=== PATIENT | female | born 1945 | race Caucasian/White ===

== ENCOUNTER 2018-08-05 10:46 | Inpatient (IN) | payer MEDICARE, OTHER ==
[2018-08-05 11:05] VITALS: BMI 20.7
--- NOTE | 2018-08-05 11:05 | CT ---
Date of service: 08/05/2018 PROCEDURE: CT HEAD WITHOUT CONTRAST. HISTORY: code stroke COMPARISON: None available. TECHNIQUE: Axial computed tomography images were obtained through the head/brain without intravenous contrast. Radiation dose: Total exam DLP = 852.48 mGy-cm. This CT exam was performed using one or more of the following dose reduction techniques: Automated exposure control, adjustment of the mA and/or kV according to patient size, and/or use of iterative reconstruction technique. FINDINGS: HEMORRHAGE: No intracranial hemorrhage. BRAIN: Good corticomedullary differentiation is seen. Limited proportional, diffuse expansion of the ventriculosulcal and cisternal spaces is appreciated with white matter lucency compatible with diffuse cerebral atrophy and chronic microangiopathy. No suspicious extra-axial fluid collection is identified and the midline brain anatomy appears grossly nonfocal as imaged. There is no mass effect throughout. VENTRICLES: Unremarkable. No hydrocephalus. CALVARIUM: Unremarkable. PARANASAL SINUSES: Limited multifocal mucosal inflammatory changes are identified affecting bilateral ethmoid sinuses MASTOID AIR CELLS: Unremarkable as visualized. No inflammatory changes. OTHER FINDINGS: None. IMPRESSION: Age related neuro degenerative changes are identified without acute intracranial findings as discussed above. Follow up CT or MRI are available if clinically warranted.
--- NOTE | 2018-08-05 11:08 | ED PDOC ---
HPI:STROKE - Time Time: 10:54 - Historian Historian: Patient, Family - Chief Complaint Chief Complaint: Weakness, Slurred speech, Arm weakness - Onset Date: 08/05/18 Time: 07:30 Onset: Hours - Timing Timing: Currently Symptomatic - Notes: Notes:: 73yo female, with past medical history of hypothyroidsm, type 2 diabetes, high cholesterol and recent diagnosis of diverticulitis, comes to ER with complaints of dizziness, right sided weakness and slurred speech since waking at 7:30a. Patient states she slept at 10pm last night and was feeling fine; she states the symptoms did not resolve after an hour from onset so she called her daughter who took her to the PMD for evaluation. Patient was seen by Dr. Jacobs and was sent directly to the ER. On arrival, patient with slurred but understandable speech; she denies any headache or pain. Patient does report 1 month ago, she was diagnosed with diverticulitis and since then has completed 2 course of antibiotics of Cipro and Metronidazole and has had 10lbs weight loss. She denies any recent episodes of vomiting or diarrhea. She was in [place] 1 month ago and denies any recent sick contacts. PMD: Dr. Vinson Meds: Synthroid, metformin, lipitor, meloxicam, calcium supplements, cippro, metronidazole NKDA NIHSS Stroke Scale - Date/Time Evaluation Performed Date Performed: 08/05/18 Time Performed: 10:54 When Was NIHSS Performed: Code Stroke - How Severe is the Stroke Level of Consciousness: 0=Alert LOC to Questions: 0=Both comments correct LOC to commands: 0=Obeys both correctly Best Gaze: 0=Normal Visual: 0=No visual loss Facial: 0=Normal Motor Arm - Left: 0=No drift Motor Arm - Right: 0=No drift Motor Leg - Left: 0=No drift Motor Leg - Right: 1=Drift before 5 sec Limb Ataxia: 0=Absent Sensory: 0=Normal Best Language: 0=No aphasia Dysarthia: 1=Mild to moderate slurring Extinction & Inattention (Neglect): 0=Normal, no object Score: 2 rTPA Inclusion/Exclusion - Refusal of Treatment Patient Refused Treatment: No - Inclusion Criteria for Altepase Patient is 18 years or Older: Yes The Clinical Diagnosis of Ischemic Stroke That is Causing a Potentially Disabling Neurological Deficit: Yes Time of Onset is Well Established to be Less Than 270 Minute Before Treatment Would Begin: No Risk/Benefit Discussed With Patient/Family Member Present: Yes Past Medical History Reviewed: Historical Data, Nursing Documentation, Vital Signs - Medical History PMH: HTN, Hypothyroidism - Surgical History Surgical History: No Surg Hx - Family History Family History: States: No Known Family Hx - Living Arrangements Living Arrangements: Alone - Social History Current smoker - smoking cessation education provided: No Alcohol: None Drugs: Denies - Home Medications Home Medications: Ambulatory Orders Medication Instructions Recorded Atorvastatin [Lipitor] 20 mg PO DAILY 08/05/18 Calcium Carbonate/Vitamin D 1 tab PO QOTHERDAY 08/05/18 [Oyster Shell Calcium/Vitamin D 250 MG-125 Iu] Ciprofloxacin [Cipro] 500 mg PO Q12 08/05/18 Levothyroxine Sodium [Synthroid] 88 mcg PO DAILY 08/05/18 Metronidazole 500 mg PO Q8H 08/05/18 Primidone [Mysoline] 50 mg PO HS 08/05/18 Raloxifene [Evista] 60 mg PO DAILY 08/05/18 metFORMIN [glucOPHAGE] 500 mg PO BID 08/05/18 - Allergies Allergies/Adverse Reactions: Allergies Allergy/AdvReac Type Severity Reaction Status Date / Time EGG Allergy VOMITING Verified 08/05/18 12:18 Review of Systems ROS Statement: Except As Marked, All Systems Reviewed And Found Negative Constitutional: Negative for: Fever, Chills Cardiovascular: Negative for: Chest Pain Respiratory: Negative for: Shortness of Breath Neurological: Positive for: Change in Speech, Dizziness. Negative for: Headache Physical Exam - Reviewed Nursing Documentation Reviewed: Yes Vital Signs Reviewed: Yes - Physical Exam Appears: Positive for: Non-toxic, Uncomfortable Head Exam: Positive for: ATRAUMATIC, NORMAL INSPECTION, NORMOCEPHALIC Skin: Positive for: Normal Color, Warm, Dry Eye Exam: Positive for: EOMI, Normal appearance, PERRL ENT: Positive for: Normal ENT Inspection Neck: Positive for: Normal, Painless ROM, Supple Cardiovascular/Chest: Positive for: Regular Rate, Rhythm Respiratory: Positive for: CNT, Normal Breath Sounds Pulses-Radial (L): 2+ Pulses-Radial (R): 2+ Gastrointestinal/Abdominal: Positive for: Normal Exam, Soft Back: Positive for: Normal Inspection. Negative for: Vertebral Tenderness, Muscle Spasm Extremity: Positive for: Normal ROM. Negative for: Pedal Edema, Deformity, Other (cyanosis) Neurologic/Psych: Positive for: Alert, multi line claims adjuster II-XII (intact), Oriented, Other ( right leg drift; slurred speech). Negative for: Motor/Sensory Deficits Comments: Patient noted to have makeup on face, which appears coordinated. - Laboratory Results Result Diagrams: 08/06/18 04:20 08/06/18 04:20 - ECG Pulse Ox Interpretation: Normal Medical Decision Making Medical Decision Making: Impression: Stroke/CVA Plan: * Labs * Chest x-ray * CT Head w/o contrast * IV Fluids Time: 1054 Code stroke called Stroke protocol followed. customer account coordinator present in ER. Time: [address] Govea, neurologist campus monitor, who states patient is not a candidate for TPA as she woke up with the symptoms. Per Dr. Govea, CTA Head and Neck ordered, and patient to be admitted to Telemetry. CT Head FINDINGS: HEMORRHAGE: No intracranial hemorrhage. BRAIN: Good corticomedullary differentiation is seen. Limited proportional, diffuse expansion of the ventriculosulcal and cisternal spaces is appreciated with white matter lucency compatible with diffuse cerebral atrophy and chronic microangiopathy. No suspicious extra-axial fluid collection is identified and the midline brain anatomy appears grossly nonfocal as imaged. There is no mass effect throughout. VENTRICLES: Unremarkable. No hydrocephalus. CALVARIUM: Unremarkable. PARANASAL SINUSES: Limited multifocal mucosal inflammatory changes are identified affecting bilateral ethmoid sinuses MASTOID AIR CELLS: Unremarkable as visualized. No inflammatory changes. OTHER FINDINGS: None. IMPRESSION: Age related neuro degenerative changes are identified without acute intracranial findings as discussed above. Follow up CT or MRI are available if clinically warranted. Time: [address] Vigil, hospitalist campus monitor, and patient to be admitted under his service. Time: 1221 CTA Brain FINDINGS: INTERNAL CEREBRAL ARTERIES: Unremarkable. The skull base, petrous, cavernous and supraclinoid segments are bilaterally widely patent. ANTERIOR CEREBRAL ARTERIES: Unremarkable. A1 and A2 segments are widely patent. Smaller distal branches unremarkable, as visualized. MIDDLE CEREBRAL ARTERIES: Unremarkable. M1 and M2 segments are widely patent. Perisylvian branches grossly symmetric. POSTERIOR CIRCULATION: Basilar Artery: Unremarkable. Distal Vertebral Arteries: Left dominant vertebrobasilar circulation widely patent. Posterior Cerebral Arteries: Unremarkable. Posterior Inferior Cerebellar Arteries: Unremarkable. CTA Neck FINDINGS: Common Carotid arteries: The left common carotid artery originates off the brachycephalic artery. The bilateral common carotid appear widely patent from their origins to their bifurcations with no significant stenosis appreciated. No evidence to suggest common carotid artery dissection. Internal Carotid arteries: No significant stenosis is appreciated throughout the cervical internal carotid artery segments bilaterally and there is no evidence of dissection either. External Carotid arteries: Appear unremarkable bilaterally. Vertebral arteries: The bilateral vertebral arteries appear normal in caliber from their origins to their junction with the basilar artery. No significant stenosis or definite pattern of dissection. ANEURYSM/ VASCULAR MALFORMATIONS: None. OTHER FINDINGS: None. IMPRESSION: Unremarkable CT Angiography of the Brain and Neck. Scribe Attestation: Documented by Mercedes Frank, acting as a scribe for Marj Rob MD. Provider Scribe Attestation: All medical record entries made by the Scribe were at my direction and personally dictated by me. I have reviewed the chart and agree that the record accurately reflects my personal performance of the history, physical exam, medical decision making, and the department course for this patient. I have also personally directed, reviewed, and agree with the discharge instructions and disposition. Disposition - Clinical Impression Clinical Impression: Weakness of one side of body, Weakness due to cerebrovascular accident - Patient ED Disposition Is Patient to be Admitted: Yes - Disposition Disposition Time: 11:55 Condition: FAIR
[2018-08-05] MEDS ORDERED: Iodixanol 320 MG/ML 100 ML BOTTLE IV ONE (11:14)
[2018-08-05] MEDS ORDERED: Sodium Chloride 0.9% 50 ML IV ONE (11:14)
[2018-08-05] MEDS: Sodium Chloride 0.9% 1,000 ML IV SCH ×2 (11:32→21:41)
[2018-08-05 11:33] LABS: BASO # 0.1 K/uL (0.0-0.2); BASO % 2.6 % (0.0-2.0); EOS # 0.1 K/uL (0.0-0.7); EOS % 1.6 % (0.0-4.0); LYMPH % 22.5 % (20.0-40.0); MEAN CELL VOLUME 84.6 fl (81.0-99.0); MEAN CORPUSCULAR HEMOGLOBIN 28.8 pg (27.0-31.0); MEAN PLATELET VOLUME 8.4 fl (7.2-11.7); MONO # 0.4 K/uL (0.0-0.8); MONO % 9.7 % (0.0-10.0); NEUT # 2.9 K/uL (1.8-7.0); NEUT % 63.6 % (50.0-75.0); NRBC % 0.1 % (0.0-0.0); RBC 5.2 Mil/uL (3.80-5.20); RED CELL DISTRIBUTION WIDTH 15.6 % (11.5-14.5); WHITE BLOOD COUNT 4.5 K/uL (4.8-10.8)
[2018-08-05 11:35] LABS: INR 1.2; PROTHROMBIN TIME 13.3 Seconds (9.8-13.1)
[2018-08-05 11:42] LABS: ALB/GLOB RATIO 1.2 (1.0-2.1); ALBUMIN 3.8 g/dL (3.5-5.0); ALT/SGPT 20 U/L (9-52); AST/SGOT 41 U/L (14-36); BLOOD UREA NITROGEN 9 mg/dl (7-17); CALCIUM 9.8 mg/dL (8.4-10.2); GFR NON-AFRICAN AMERICAN > 60; HDL CHOLESTEROL 57 MG/DL (30-70)
[2018-08-05 11:56] LABS: LDL CHOLESTEROL < 30 mg/dL (0-129)
--- NOTE | 2018-08-05 12:23 | CT ---
Date of service: 08/05/2018 PROCEDURE: CT Angiography of the Brain. HISTORY: right sided weakness and slurred speech COMPARISON: None available. TECHNIQUE: CT angiography of the intracranial and neck arteries was performed. Coronal and sagittal maximum intensity projection reformatted images were generated. Contrast Dose: Visipaque 320, 99 cc Radiation dose:Total exam DLP = 425.99 mGy-cm. This CT exam was performed using one or more of the following dose reduction techniques: Automated exposure control, adjustment of the mA and/or kV according to patient size, and/or use of iterative reconstruction technique. FINDINGS: INTERNAL CEREBRAL ARTERIES: Unremarkable. The skull base, petrous, cavernous and supraclinoid segments are bilaterally widely patent. ANTERIOR CEREBRAL ARTERIES: Unremarkable. A1 and A2 segments are widely patent. Smaller distal branches unremarkable, as visualized. MIDDLE CEREBRAL ARTERIES: Unremarkable. M1 and M2 segments are widely patent. Perisylvian branches grossly symmetric. POSTERIOR CIRCULATION: Basilar Artery: Unremarkable. Distal Vertebral Arteries: Left dominant vertebrobasilar circulation widely patent. Posterior Cerebral Arteries: Unremarkable. Posterior Inferior Cerebellar Arteries: Unremarkable. NECK CTA: Common Carotid arteries: The left common carotid artery originates off the brachycephalic artery. The bilateral common carotid appear widely patent from their origins to their bifurcations with no significant stenosis appreciated. No evidence to suggest common carotid artery dissection. Internal Carotid arteries: No significant stenosis is appreciated throughout the cervical internal carotid artery segments bilaterally and there is no evidence of dissection either. External Carotid arteries: Appear unremarkable bilaterally. Vertebral arteries: The bilateral vertebral arteries appear normal in caliber from their origins to their junction with the basilar artery. No significant stenosis or definite pattern of dissection. ANEURYSM/ VASCULAR MALFORMATIONS: None. OTHER FINDINGS: None. IMPRESSION: Unremarkable CT Angiography of the Brain and Neck.
--- NOTE | 2018-08-05 13:25 | RAD ---
HISTORY: Code Stroke COMPARISON: None available. TECHNIQUE: Chest, one view. FINDINGS: Examination limited by habitus and patient obliquity. LUNGS: Mild pulmonary venous congestion. Scattered nodular densities, likely calcified granulomas bilaterally. Please note that chest x-ray has limited sensitivity for the detection of pulmonary masses. PLEURA: No significant pleural effusion identified. No definite pneumothorax . CARDIOVASCULAR: Heart size appears top normal. Ectatic aorta OSSEOUS STRUCTURES: Scoliosis. Osseous demineralization. Degenerative changes. VISUALIZED UPPER ABDOMEN: Unremarkable. OTHER FINDINGS: None. IMPRESSION: Mild pulmonary venous congestion. Scattered nodular densities, likely calcified granulomas. Additional findings as above.
[2018-08-05] MEDS ORDERED: Potassium Chloride 20 mEq ER Tab PO ONE (13:36)
--- NOTE | 2018-08-05 13:37 | CP.PCM.HP ---
History of Present Illness - History of Present Illness History of Present Illness: HPI: 73 y/o Female with PMHx of DM type 2, HLD, Hypothyroidsm, Esssential tremors and recent diagnosis of diverticultitis, presents to the ED accompanied by daughter, who is also the history barrel stave inspector, with c/o unsteady gait, weakness of bilateral lower extremities and slurred speech since waking up today at 7:30 AM , according to family she is also noted forgetful. Patient states she was feeling fine yesterday before going to bed around 10 PM. 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 Patient denies any associated symptoms today of GUTIÉRREZ, chest pain,palpitations, blurry vision, tinnitus, N/V/D or abdominal pain at this time. Family reports that patient was diagnosed with diverticultis on July 12 and is on her second course of antbx with cipro and flagyl and following up with GI Dr Jacobs for this reason, daughter reports that the patient has decreased appetite since she started with diverticulitis and has lost approximately 20 Lbs in the last 1 MO. ROS: All systems reviewed ad are negative, excep as per HPI. PMH: DM type 2, HLD, Essential tremors, Hypothyroidsm, Diverticulitis. FMH: unremarkable SURG: Thyroid Sx. SOHx: Denies tobacco/ ETOH/Rec drug use. Allergies: NKDA/ Food Allergies: Egg PMD: Dr. Vinson. MEDS: Synthroid, metformin, primidone for hx hand tremors(patient and daughter deny hx of seizures), lipitor, meloxicam prn, calcium supplements, cippro, metronidazole Nex of kin: Daughters: Elaine Curry [phone], Amee Browning(daughter) [phone] Code Status: Full code. ED Course: VS HR 73, BP 153/90, RR 18, Osat 95% LABS: CBC Hb 15/ Hto 44 Chem Lipid P is WNL. Imaging: CXR shows impression mild pulm congestion, scattered nodular densities , likely calcified granulomas. CT head: Age related changes, no acute findings Head/ Neck CTA: No acute findings. EKG: NSR, Nonespecific ST segement abnormalities Swallow eval done: Recomm regular diet and thin liq, no skilled therapeutic intervention at this time Present on Admission - Present on Admission Any Indicators Present on Admission: No History of DVT/PE: No History of Uncontrolled Diabetes: No Urinary Catheter: No Decubitus Ulcer Present: No History Surgical Site Infection Following: None Past Patient History - Past Social History Alcohol: None Drugs: Denies - CARDIAC Hx Cardiac Disorders: Yes - ENDOCRINE/METABOLIC Hx Hypothyroidism: Yes - PSYCHIATRIC Hx Substance Use: No - SURGICAL HISTORY Hx Thyroidectomy: Yes Meds Allergies/Adverse Reactions: Allergies Allergy/AdvReac Type Severity Reaction Status Date / Time EGG Allergy VOMITING Verified 08/05/18 12:18 Physical Exam - Constitutional Appears: Non-toxic, No Acute Distress - Head Exam Head Exam: ATRAUMATIC, NORMOCEPHALIC - Eye Exam Eye Exam: EOMI, PERRL. absent: Nystagmus - ENT Exam ENT Exam: Mucous Membranes Moist - Neck Exam Neck exam: Positive for: Full Rom - Respiratory Exam Respiratory Exam: Clear to Auscultation Bilateral. absent: Rales, Rhonchi, Wheezes - Cardiovascular Exam Cardiovascular Exam: REGULAR RHYTHM, +S1, +S2. absent: JVD - GI/Abdominal Exam GI & Abdominal Exam: Normal Bowel Sounds, Soft. absent: Mass, Tenderness - Extremities Exam Extremities exam: Negative for: calf tenderness, pedal edema - Neurological Exam Neurological exam: Alert, Oriented x3 Additional comments: No sensorial deficit noted MOTOR deficit noted on RLE 3/5 No Arm drift According to Family mild slurred speech NIH stroke scale score 2 - Expanded Neurological Exam Expanded Neurological exam: Memory Loss-Remote Event (patient is noted with some forgetfulness of past events) Patient oriented to: person, place, time Cranial nerves: Tongue Deviation: Normal Upper motor neuron: Pronator Drift: Normal Neuro motor strength exam: Left Upper Extremity: 5, Right Upper Extremity: 5, Left Lower Extremity: 5, Right Lower Extremity: 3 - Psychiatric Exam Psychiatric exam: Normal Affect, Normal Mood - Skin Skin Exam: Dry, Normal Color, Warm Results - Vital Signs Recent Vital Signs: Last Vital Signs Temp Pulse 82 08/05/18 13:02 Resp 18 08/05/18 13:02 BP 159/86 H 08/05/18 13:02 Pulse Ox 95 08/05/18 12:20 - Labs Result Diagrams: 08/05/18 11:26 08/05/18 11:26 Labs: Laboratory Results - last 24 hr 08/05/18 08/05/18 08/05/18 11:26 11:26 11:26 WBC 4.5 L RBC 5.20 Hgb 15.0 Hct 44.0 MCV 84.6 MCH 28.8 MCHC 34.0 RDW 15.6 H Plt Count 317 MPV 8.4 Neut % (Auto) 63.6 Lymph % (Auto) 22.5 [place] % (Auto) 9.7 Eos % (Auto) 1.6 Baso % (Auto) 2.6 H Neut # (Auto) 2.9 Lymph # (Auto) 1.0 [place] # (Auto) 0.4 Eos # (Auto) 0.1 Baso # (Auto) 0.1 PT 13.3 H INR 1.2 APTT 32.0 Sodium 142 Potassium 3.4 L Chloride 106 Carbon Dioxide 29 Anion Gap 10 BUN 9 Creatinine 0.7 Est GFR ( Amer) > 60 Est GFR (Non-Af Amer) > 60 Random Glucose 147 H Calcium 9.8 Total Bilirubin 0.3 AST 41 H ALT 20 Alkaline Phosphatase 58 Troponin I < 0.0120 Total Protein 7.0 Albumin 3.8 Globulin 3.2 Albumin/Globulin Ratio 1.2 Triglycerides 64 Cholesterol 111 LDL Cholesterol Direct < 30 HDL Cholesterol 57 BBK History Checked 08/05/18 12:40 WBC RBC Hgb Hct MCV MCH MCHC RDW Plt Count MPV Neut % (Auto) Lymph % (Auto) [place] % (Auto) Eos % (Auto) Baso % (Auto) Neut # (Auto) Lymph # (Auto) [place] # (Auto) Eos # (Auto) Baso # (Auto) PT INR APTT Sodium Potassium Chloride Carbon Dioxide Anion Gap BUN Creatinine Est GFR ( Amer) Est GFR (Non-Af Amer) Random Glucose Calcium Total Bilirubin AST ALT Alkaline Phosphatase Troponin I Total Protein Albumin Globulin Albumin/Globulin Ratio Triglycerides Cholesterol LDL Cholesterol Direct HDL Cholesterol BBK History Checked No verified bt Assessment & Plan - Assessment and Plan (Free Text) Assessment: 73 y/o Female with PMHx of DM type 2, HLD, Hypothyroidsm, Essential tremors and recent diagnosis of diverticultitis presented with Slurred speech, LE weakness and unsteady gait since waking up, admitted to rule out CVA vs TIA. Plan: Acute CVA vs TIA -Patient had some improvement of slurred speech at time of evaluation -Admit to tele-monitoring -Neuro check Q 4h -Swallow Eval: performed, WNL -CT of head: done: Age related changes, no acute findings. -CTA HEad/Neck: Unremarkbale CTA -Aspirin 81 PO QD -Plavix 75 PO QD -Atorvastatin 80 mg PO QD -Neurology consult by Dr Govea, recommendations appreciated -BMP in AM -MRI of brain w/o contrast: pending results -PT/OT evaluation and Tx DM type 2 -Heart healthy/diabetic diet -Insulin mild SS coverage -Metformin: on Hold for now -F/u HbA1C, pending results Hypothyroidsm -Levothyroxine 88 mcg PO QD Hs of Tremors -Primidone 25 PO QHS Diverticultis -Patient currently receiving outpatient tx -we will continue to complete flagyl and cipro. -Outpatient GI Dr Jacobs DVT Prophylaxis -Heparin 5000 U SC Q8h Code Status -Full code
[2018-08-05] MEDS ORDERED: Dextrose 50% SYRINGE Inj (50 ml) IV PRN (13:44)
[2018-08-05] MEDS ORDERED: Glucagon Recombinant 1 mg Inj IM PRN (13:44)
[2018-08-05] MEDS: Insulin Lispro (humaLOG) 100 Units/ml Inj SC SCH ×2 (17:15→21:40)
[2018-08-06 05:11] LABS: HEMOGLOBIN 12.6 g/dL (12.0-16.0); MEAN CELL VOLUME 85.2 fl (81.0-99.0); MEAN CORPUSCULAR HEMOGLOBIN 28.7 pg (27.0-31.0); MEAN CORPUSCULAR HGB CONC 33.6 g/dL (33.0-37.0); RBC 4.41 Mil/uL (3.80-5.20); RED CELL DISTRIBUTION WIDTH 15.5 % (11.5-14.5); WHITE BLOOD COUNT 4.1 K/uL (4.8-10.8)
[2018-08-06 05:31] LABS: BLOOD UREA NITROGEN 10 mg/dl (7-17); CALCIUM 8.6 mg/dL (8.4-10.2); GFR NON-AFRICAN AMERICAN > 60
[2018-08-06] MEDS: Levothyroxine 88 MCG TAB PO SCH (06:30)
[2018-08-06] MEDS: Insulin Lispro (humaLOG) 100 Units/ml Inj SC SCH ×4 (06:31→21:25)
--- NOTE | 2018-08-06 07:50 | CP.PCM.PN ---
Objective - Vital Signs/Intake and Output Vital Signs (last 24 hours): Temp Pulse Resp BP Pulse Ox 98.1 F 71 18 124/62 97 08/06/18 04:55 08/06/18 04:55 08/06/18 04:55 08/06/18 04:55 08/06/18 04:55 - Medications Medications: Current Medications Aspirin (Aspirin Chewable) 81 mg PO DAILY [facility] Last Admin: 08/05/18 15:56 Dose: 81 mg Atorvastatin Calcium (Lipitor) 80 mg PO HS [facility] Last Admin: 08/05/18 21:40 Dose: 80 mg Calcium/Vitamin D (Oscal-D 250 Mg-125 Units Tab) 1 tab PO QOTHERDAY [facility] Ciprofloxacin (Cipro) 500 mg PO Q12 [facility] PRN Reason: Protocol Stop: 08/08/18 21:00 Last Admin: 08/05/18 21:39 Dose: 500 mg Clopidogrel Bisulfate (Plavix) 75 mg PO DAILY [facility] Last Admin: 08/05/18 15:55 Dose: 75 mg Dextrose (Dextrose 50% Inj) 0 ml IV STAT PRN; Protocol PRN Reason: Hypoglycemia Protocol Dextrose (Glutose 15) 0 gm PO ONCE PRN; Protocol PRN Reason: Hypoglycemia Protocol Glucagon (Glucagen Diagnostic Kit) 0 mg IM STAT PRN; Protocol PRN Reason: Hypoglycemia Protocol Heparin Sodium (Porcine) (Heparin) 5,000 units SC Q8 [facility] PRN Reason: Protocol Last Admin: 08/06/18 00:40 Dose: 5,000 units Home Med (Raloxifene [Evista]) 60 mg PO DAILY [facility] Sodium Chloride (Sodium Chloride 0.9%) 1,000 mls @ 100 mls/hr IV .Q10H [facility] Last Admin: 08/05/18 21:41 Dose: 100 mls/hr Insulin Human Lispro (Humalog) 0 units SC ACHS [facility] PRN Reason: Protocol Last Admin: 08/06/18 06:31 Dose: Not Given Levothyroxine Sodium (Synthroid) 88 mcg PO DAILY@0630 [facility] Last Admin: 08/06/18 06:30 Dose: 88 mcg Metronidazole (Flagyl) 500 mg PO Q8H [facility] PRN Reason: Protocol Stop: 08/08/18 21:45 Last Admin: 08/06/18 06:30 Dose: 500 mg Primidone (Mysoline) 25 mg PO HS [facility] Last Admin: 08/05/18 21:40 Dose: 25 mg - Labs Labs: 08/06/18 04:20 08/06/18 04:20 PT 13.3 Seconds (9.8-13.1) H 08/05/18 11:26 INR 1.2 08/05/18 11:26 APTT 32.0 Seconds (25.6-37.1) 08/05/18 11:26
[2018-08-06] MEDS: Patient's Own Med (Raloxifene [Evista] 60 MG) PO SCH (09:08)
[2018-08-06] MEDS: Calcium-Vit D 250 mg-125 Units Tab UD PO SCH (09:10)
--- NOTE | 2018-08-06 11:10 | MRI ---
Date of service: 08/05/2018 PROCEDURE: MRI BRAIN WITHOUT CONTRAST HISTORY: r/o CVA COMPARISON: Noncontrast head CT 08/05/2018. TECHNIQUE: Multiplanar, multisequence MR images of the brain were obtained without intravenous contrast enhancement. FINDINGS: HEMORRHAGE: None DWI: No evidence of an acute or early subacute infarction. BRAIN PARENCHYMA: Good corticomedullary differentiation is seen. Proportional, marginal but diffuse expansion of the ventriculosulcal and cisternal spaces is appreciated with minimal white matter lucency compatible with diffuse cerebral atrophy and chronic microangiopathy. No suspicious extra-axial fluid collection is identified and the midline brain anatomy appears grossly nonfocal as imaged. There is no mass effect throughout. VENTRICLES: Unremarkable. No hydrocephalus. CRANIUM: Unremarkable. ORBITS: Grossly unremarkable. PARANASAL SINUSES/MASTOIDS: Clear VASCULAR SYSTEM: Skull base flow voids intact. OTHER FINDINGS: None. IMPRESSION: 1. No acute or subacute brain infarction appreciated. No lobar brain infarction. 2. Limited age-related neuro degenerative findings are identified throughout the cerebrum. 3. Examination otherwise unremarkable.
[2018-08-06] MEDS: Sodium Chloride 0.9% 1,000 ML IV SCH ×2 (11:47→14:35)
--- NOTE | 2018-08-06 12:39 | CP.PCM.PN ---
Subjective - Date & Time of Evaluation Date of Evaluation: 08/06/18 Time of Evaluation: 08:50 - Subjective Subjective: Patient seen at bedside this AM, NAD, no dysarthria today, states feeling better compared to yesterday, denies GUTIÉRREZ, chest pain, SOB, palpitations, abdominal pain, N/V. Objective - Vital Signs/Intake and Output Vital Signs (last 24 hours): Temp Pulse Resp BP Pulse Ox 98.3 F 63 18 136/76 97 08/06/18 12:00 08/06/18 12:00 08/06/18 12:00 08/06/18 12:00 08/06/18 12:00 - Medications Medications: Current Medications Aspirin (Aspirin Chewable) 81 mg PO DAILY COUNTS [facility]CLUDE 234 BEDS AT THE [facility] Last Admin: 08/06/18 09:06 Dose: 81 mg Atorvastatin Calcium (Lipitor) 80 mg PO HS COUNTS INCLUDE 234 BEDS AT THE [facility] Last Admin: 08/05/18 21:40 Dose: 80 mg Calcium/Vitamin D (Oscal-D 250 Mg-125 Units Tab) 1 tab PO QOTHERDAY COUNTS INCLUDE 234 BEDS AT THE [facility] Last Admin: 08/06/18 09:10 Dose: 1 tab Ciprofloxacin (Cipro) 500 mg PO Q12 COUNTS [facility]CLUDE 234 BEDS AT THE [facility] PRN Reason: Protocol Stop: 08/08/18 21:00 Last Admin: 08/06/18 09:06 Dose: 500 mg Clopidogrel Bisulfate (Plavix) 75 mg PO DAILY COUNTS INCLUDE 234 BEDS AT THE [facility] Last Admin: 08/06/18 09:08 Dose: 75 mg Dextrose (Dextrose 50% Inj) 0 ml IV STAT PRN; Protocol PRN Reason: Hypoglycemia Protocol Dextrose (Glutose 15) 0 gm PO ONCE PRN; Protocol PRN Reason: Hypoglycemia Protocol Glucagon (Glucagen Diagnostic Kit) 0 mg IM STAT PRN; Protocol PRN Reason: Hypoglycemia Protocol Heparin Sodium (Porcine) (Heparin) 5,000 units SC Q8 COUNTS INCLUDE 234 BEDS AT THE [facility] PRN Reason: Protocol Last Admin: 08/06/18 09:06 Dose: 5,000 units Home Med (Raloxifene [Evista]) 60 mg PO DAILY COUNTS INCLUDE 234 BEDS AT THE [facility] Last Admin: 08/06/18 09:08 Dose: 60 mg Insulin Human Lispro (Humalog) 0 units SC ACHS COUNTS INCLUDE 234 BEDS AT THE [facility] PRN Reason: Protocol Last Admin: 08/06/18 11:46 Dose: Not Given Levothyroxine Sodium (Synthroid) 88 mcg PO DAILY@0630 COUNTS INCLUDE 234 BEDS AT THE [facility] Last Admin: 08/06/18 06:30 Dose: 88 mcg Metronidazole (Flagyl) 500 mg PO Q8H [facility] PRN Reason: Protocol Stop: 08/08/18 21:45 Last Admin: 08/06/18 06:30 Dose: 500 mg Primidone (Mysoline) 25 mg PO HS COUNTS INCLUDE 234 BEDS AT THE [facility] Last Admin: 08/05/18 21:40 Dose: 25 mg - Labs Labs: 08/06/18 04:20 08/06/18 04:20 PT 13.3 Seconds (9.8-13.1) H 08/05/18 11:26 INR 1.2 08/05/18 11:26 APTT 32.0 Seconds (25.6-37.1) 08/05/18 11:26 - Constitutional Appears: No Acute Distress - Head Exam Head Exam: ATRAUMATIC, NORMOCEPHALIC - Eye Exam Eye Exam: EOMI, PERRL - ENT Exam ENT Exam: Mucous Membranes Moist - Neck Exam Neck Exam: Full ROM - Respiratory Exam Respiratory Exam: Clear to Ausculation Bilateral. absent: Wheezes - Cardiovascular Exam Cardiovascular Exam: REGULAR RHYTHM, +S1, +S2 - GI/Abdominal Exam GI & Abdominal Exam: Soft, Normal Bowel Sounds. absent: Tenderness - Extremities Exam Extremities Exam: absent: Pedal Edema - Neurological Exam Neurological Exam: Alert, CN II-XII Intact, Oriented x3 Neuro motor strength exam: Left Upper Extremity: 5, Right Upper Extremity: 5, Left Lower Extremity: 5, Right Lower Extremity: 4 Additional comments: No sensorial deficit noted today. Noted a mild motor deficit on RLE 4/5 compared to LLE 5/5 - Psychiatric Exam Psychiatric exam: Normal Affect, Normal Mood - Skin Skin Exam: Normal Color, Warm Assessment and Plan - Assessment and Plan (Free Text) Assessment: 73 y/o Female with PMHx of DM type 2, HLD, Hypothyroidsm, Essential tremors and recent diagnosis of diverticultitis presented with Slurred speech, unsteady gait and LE weakness admitted to rule out CVA vs TIA Plan: Acute CVA vs TIA -Patient dysarthria resolved at this time, RLE weakness significantly improved(4 /5), but still slightly weaker than LLE. -tele-monitoring -Neuro check Q 4h -Swallow Eval: performed, WNL -CT of head: done: Age related changes, no acute findings. -CTA HEad/Neck: Unremarkbale CTA -Aspirin 81 PO QD -Plavix 75 PO QD -Atorvastatin 80 mg PO QD -Neurology consult by Dr Govea, recommendations appreciated -BMP unremarkable -MRI unremarkable for acute or subacute brain infarction, no lobar infarction. -PT/OT evaluation and Tx appreciated DM type 2 -Heart healthy/diabetic diet -Insulin mild SS coverage -Metformin: on Hold for now -F/u HbA1C, pending results Hypothyroidsm -Levothyroxine 88 mcg PO QD Hs of Tremors -Primidone 25 PO QHS Diverticultis -Patient currently receiving outpatient tx -we will continue to complete flagyl and cipro. -Outpatient GI Dr Jacobs DVT Prophylaxis -Heparin 5000 U SC Q8h Code Status -Full code
--- NOTE | 2018-08-06 14:34 | CP.PCM.CON ---
History of Present Illness - History of Present Illness History of Present Illness: 73 yr old woman who woke up with dizziness yesterday at 7:30 am, as a code stroke, who is now back to baseline. She has dizziness on and off, and had no weakness, no dysarthria, no aphasia, no facial droop. Family reports that she is forgetful at times, and doesnt take them all or takes too many. Past Patient History - Past Social History Smoking Status: Never Smoked - CARDIAC Hx Cardiac Disorders: No - PULMONARY Hx Respiratory Disorders: No - NEUROLOGICAL Hx Neurological Disorder: No - HEENT Hx Cataracts: Yes Other/Comment: Right eye cataract extraction with intraocular lens impant with istent - RENAL Hx Chronic Kidney Disease: No - ENDOCRINE/METABOLIC Hx Diabetes Mellitus Type 2: Yes Hx Hypothyroidism: Yes - HEMATOLOGICAL/ONCOLOGICAL Hx Blood Disorders: No - INTEGUMENTARY Hx Dermatological Problems: No - MUSCULOSKELETAL/RHEUMATOLOGICAL Hx Musculoskeletal Disorders: No Hx Falls: No - GASTROINTESTINAL Hx Diverticulitis: Yes - GENITOURINARY/GYNECOLOGICAL Hx Genitourinary Disorders: No - PSYCHIATRIC Hx Psychophysiologic Disorder: No Hx Substance Use: No - SURGICAL HISTORY Hx Thyroidectomy: Yes - ANESTHESIA Hx Anesthesia: Yes Hx Anesthesia Reactions: No Hx Malignant Hyperthermia: No Has any member of the family had a problem w/ anesthesia?: No Meds Allergies/Adverse Reactions: Allergies Allergy/AdvReac Type Severity Reaction Status Date / Time EGG Allergy VOMITING Verified 08/05/18 12:18 - Medications Medications: Current Medications Aspirin (Aspirin Chewable) 81 mg PO DAILY [facility] Last Admin: 08/06/18 09:06 Dose: 81 mg Atorvastatin Calcium (Lipitor) 80 mg PO HS [facility] Last Admin: 08/05/18 21:40 Dose: 80 mg Calcium/Vitamin D (Oscal-D 250 Mg-125 Units Tab) 1 tab PO QOTHERDAY [facility] Last Admin: 08/06/18 09:10 Dose: 1 tab Ciprofloxacin (Cipro) 500 mg PO Q12 [facility] PRN Reason: Protocol Stop: 08/08/18 21:00 Last Admin: 08/06/18 09:06 Dose: 500 mg Clopidogrel Bisulfate (Plavix) 75 mg PO DAILY [facility] Last Admin: 08/06/18 09:08 Dose: 75 mg Dextrose (Dextrose 50% Inj) 0 ml IV STAT PRN; Protocol PRN Reason: Hypoglycemia Protocol Dextrose (Glutose 15) 0 gm PO ONCE PRN; Protocol PRN Reason: Hypoglycemia Protocol Glucagon (Glucagen Diagnostic Kit) 0 mg IM STAT PRN; Protocol PRN Reason: Hypoglycemia Protocol Heparin Sodium (Porcine) (Heparin) 5,000 units SC Q8 [facility] PRN Reason: Protocol Last Admin: 08/06/18 09:06 Dose: 5,000 units Home Med (Raloxifene [Evista]) 60 mg PO DAILY [facility] Last Admin: 08/06/18 09:08 Dose: 60 mg Insulin Human Lispro (Humalog) 0 units SC ACHS [facility] PRN Reason: Protocol Last Admin: 08/06/18 11:46 Dose: Not Given Levothyroxine Sodium (Synthroid) 88 mcg PO DAILY@0630 [facility] Last Admin: 08/06/18 06:30 Dose: 88 mcg Metronidazole (Flagyl) 500 mg PO Q8H [facility] PRN Reason: Protocol Stop: 08/08/18 21:45 Last Admin: 08/06/18 13:40 Dose: 500 mg Primidone (Mysoline) 25 mg PO HS [facility] Last Admin: 08/05/18 21:40 Dose: 25 mg Results - Vital Signs Recent Vital Signs: Last Vital Signs Temp 98.3 F 08/06/18 12:00 Pulse 63 08/06/18 12:00 Resp 18 08/06/18 12:00 BP 136/76 08/06/18 12:00 Pulse Ox 97 08/06/18 12:00 - Labs Result Diagrams: 08/06/18 04:20 08/06/18 04:20 Labs: Laboratory Results - last 24 hr 08/05/18 08/05/18 08/05/18 10:45 11:26 16:47 WBC RBC Hgb Hct MCV MCH MCHC RDW Plt Count Sodium Potassium Chloride Carbon Dioxide Anion Gap BUN Creatinine Est GFR ( Amer) Est GFR (Non-Af Amer) POC Glucose (mg/dL) 152 H 106 Random Glucose Hemoglobin A1c 6.0 Calcium 08/05/18 08/06/18 08/06/18 20:54 04:20 04:20 WBC 4.1 L RBC 4.41 Hgb 12.6 D Hct 37.6 MCV 85.2 MCH 28.7 MCHC 33.6 RDW 15.5 H Plt Count 251 Sodium 141 Potassium 4.5 Chloride 110 H Carbon Dioxide 27 Anion Gap 9 L BUN 10 Creatinine 0.7 Est GFR ( Amer) > 60 Est GFR (Non-Af Amer) > 60 POC Glucose (mg/dL) 127 H Random Glucose 101 Hemoglobin A1c Calcium 8.6 08/06/18 08/06/18 05:09 11:03 WBC RBC Hgb Hct MCV MCH MCHC RDW Plt Count Sodium Potassium Chloride Carbon Dioxide Anion Gap BUN Creatinine Est GFR ( Amer) Est GFR (Non-Af Amer) POC Glucose (mg/dL) 82 114 H Random Glucose Hemoglobin A1c Calcium
[2018-08-07] MEDS: Insulin Lispro (humaLOG) 100 Units/ml Inj SC SCH ×4 (06:34→22:00)
[2018-08-07] MEDS: Levothyroxine 88 MCG TAB PO SCH (06:37)
[2018-08-07] MEDS: Calcium-Vit D 250 mg-125 Units Tab UD PO SCH (08:29)
[2018-08-07] MEDS: Patient's Own Med (Raloxifene [Evista] 60 MG) PO SCH (08:30)
--- NOTE | 2018-08-07 09:32 | PCM.RRT ---
<Charles Holguin - Last Filed: 08/07/18 14:40> I.Reason for [employer] - A) Acute Change in Patient: Subjective: [employer] Time 9:10AM [employer] Arrival Time: 9:10AM [employer] Location: [facility] Tele unit [employer] VS on Arrival: BP 155/85, HR 86, RR18, TEmp 97.8% S: A Code Stroke is called by RN after patient was found with slurred speech.The patient is a 73 y/o Female with PMHx that includes DM type 2, HLD, Hypothyroidsm, Essential tremors and recent diagnosis of diverticultitis who presented with slurred speech, unsteady gait and LE weakness on 08/05/18 and admitted to r/o CVA vs TIA. After admission patient had stroke work-up done, was seen by Neuro Dr Govea and the patient symptoms of weakness and slurred speech started to improve and yesterday 08/06/18 no dysarthria or weakness was noted. Today patient is seen at bedside noted with recurrent worsen dysathria and c/o weakness of b/l LE, she denies GUTIÉRREZ, chest pain, palpitations, abdominal pain, dizziness, N/V. O: HEENT : Normocephalic, atraumatic. RESP: CTA b/l CV: RRR,S1 S2 pesent ABD: Soft, nontender. LE: No edema NEuro: AAAOx3 NIHSS performed on patient: Score of 3( bilateral LE weakness bilateral x2, mild to mederate dysarthria can be understood x1) A/P The patient is a 73 y/o Female with PMHx that includes DM type 2, HLD, Hypothyroidsm, Essential tremors and recent diagnosis of diverticultitis who presented with slurred speech, unsteady gait and LE weakness on 08/05/18 and was admitted to r/o CVA vs TIA, who after having significant improvement of symptoms on day 2 after admission, today has recurrence of dysarthria and LE weakness and a Code stroke is called on patient, will initaite stroke work-up to r/o a developing CVA given this recurrent event. [employer] intervetions and plan -Stat CT of head -Stat EKG -Neuro sap consultant notified, recommendation obtained are appreciated -EEG to r/o seizure disorder -Tele monitoring -Neuro check -VS monitoring [employer] End Time 9: 21 [employer] leader: Dr Fe Rocha [employer] Residents: Dr Mitchell PGY3, Dr Mcwilliams PGY1 <Renea Rocha - Last Filed: 08/07/18 17:34> Attending/Attestation - Attestation I have personally seen and examined this patient.: Yes I have fully participated in the care of the patient.: Yes I have reviewed all pertinent clinical information, including history, physical exam and plan: Yes
--- NOTE | 2018-08-07 09:33 | CP.PCM.PN ---
<Charles Holguin - Last Filed: 08/07/18 15:38> Subjective - Date & Time of Evaluation Date of Evaluation: 08/07/18 Time of Evaluation: 09:10 - Subjective Subjective: The patient was found with slurred speech this morning and a code stroke was called by RN, at this time the patient is also seen by me at bedside and is with recurrent dysarthria and c/o weakness of b/l LE, she denies GUTIÉRREZ, chest pain , palpitations, abdominal pain, dizziness, N/V or dysphagia while having breakfast. Objective - Vital Signs/Intake and Output Vital Signs (last 24 hours): Temp Pulse Resp BP Pulse Ox 97.4 F L 70 18 129/73 98 08/07/18 08:00 08/07/18 08:00 08/07/18 08:00 08/07/18 08:00 08/07/18 08:00 - Medications Medications: Current Medications Aspirin (Aspirin Chewable) 81 mg PO DAILY [facility] Last Admin: 08/07/18 08:28 Dose: 81 mg Atorvastatin Calcium (Lipitor) 80 mg PO HS [facility] Last Admin: 08/06/18 21:21 Dose: 80 mg Calcium/Vitamin D (Oscal-D 250 Mg-125 Units Tab) 1 tab PO QOTHERDAY [facility] Last Admin: 08/07/18 08:29 Dose: 1 tab Ciprofloxacin (Cipro) 500 mg PO Q12 [facility] PRN Reason: Protocol Stop: 08/08/18 21:00 Last Admin: 08/07/18 08:28 Dose: 500 mg Clopidogrel Bisulfate (Plavix) 75 mg PO DAILY [facility] Last Admin: 08/07/18 08:30 Dose: 75 mg Dextrose (Dextrose 50% Inj) 0 ml IV STAT PRN; Protocol PRN Reason: Hypoglycemia Protocol Dextrose (Glutose 15) 0 gm PO ONCE PRN; Protocol PRN Reason: Hypoglycemia Protocol Donepezil HCl (Aricept) 5 mg PO HS [facility] Last Admin: 08/06/18 21:20 Dose: 5 mg Glucagon (Glucagen Diagnostic Kit) 0 mg IM STAT PRN; Protocol PRN Reason: Hypoglycemia Protocol Heparin Sodium (Porcine) (Heparin) 5,000 units SC Q8 [facility] PRN Reason: Protocol Last Admin: 08/07/18 00:35 Dose: 5,000 units Home Med (Raloxifene [Evista]) 60 mg PO DAILY [facility] Last Admin: 08/07/18 08:30 Dose: 60 mg Insulin Human Lispro (Humalog) 0 units SC ACHS [facility] PRN Reason: Protocol Last Admin: 08/07/18 06:34 Dose: Not Given Levothyroxine Sodium (Synthroid) 88 mcg PO DAILY@0630 [facility] Last Admin: 08/07/18 06:37 Dose: 88 mcg Metronidazole (Flagyl) 500 mg PO Q8H [facility] PRN Reason: Protocol Stop: 08/08/18 21:45 Last Admin: 08/07/18 06:37 Dose: 500 mg Primidone (Mysoline) 25 mg PO HS [facility] Last Admin: 08/06/18 21:20 Dose: 25 mg - Labs Labs: 08/06/18 04:20 08/06/18 04:20 PT 13.3 Seconds (9.8-13.1) H 08/05/18 11:26 INR 1.2 08/05/18 11:26 APTT 32.0 Seconds (25.6-37.1) 08/05/18 11:26 - Constitutional Appears: Non-toxic, No Acute Distress - Head Exam Head Exam: ATRAUMATIC, NORMOCEPHALIC - Eye Exam Eye Exam: EOMI - ENT Exam ENT Exam: Mucous Membranes Moist - Neck Exam Neck Exam: Full ROM - Respiratory Exam Respiratory Exam: Clear to Ausculation Bilateral. absent: Wheezes - Cardiovascular Exam Cardiovascular Exam: REGULAR RHYTHM, +S1, +S2 - GI/Abdominal Exam GI & Abdominal Exam: Soft, Normal Bowel Sounds. absent: Tenderness - Extremities Exam Extremities Exam: absent: Pedal Edema - Neurological Exam Neurological Exam: Alert, Awake, Oriented x3 Neuro motor strength exam: Left Upper Extremity: 5, Right Upper Extremity: 5, Left Lower Extremity: 3, Right Lower Extremity: 3 Additional comments: NIHSS performed on patient: Score of 3( bilateral LE weakness bilateral x2, mild to mederate dysarthria can be understood x1) - Psychiatric Exam Psychiatric exam: Normal Affect - Skin Skin Exam: Normal Color, Warm Assessment and Plan - Assessment and Plan (Free Text) Assessment: The patient is a 73 y/o Female with PMHx that includes DM type 2, HLD, Hypothyroidsm, Essential tremors and recent diagnosis of diverticultitis who presented with slurred speech, unsteady gait and LE weakness on 08/05/18 and was admitted to r/o CVA vs TIA, who after having significant improvement of symptoms on day 2 after admission, today has recurrence of dysarthria and LE weakness and a Code stroke is called on patient, stroke work-up initiated to r/ o a developing CVA . Plan: Acute CVA vs TIA -Patient is having recurrence of dysarthria and LE weakness today after a significant improvement, chart reviewed, VS stable and imaging studies reviewed with no evidence of acute changes reported, we will d/c levaquin 2/2 the association with [employer] side effects. -Continue Neuro check Q 4h -Swallow Eval: performed, WNL -CT of head: done: Age related changes, no acute findings. -CTA HEad/Neck: Unremarkbale CTA -MRI of brain repeated: no evidence for acute infarct reported -Aspirin 81 PO QD -Plavix 75 PO QD -Atorvastatin 80 mg PO QD -Neurology consulted, Dr Govea, recomm appreciated. -BMP unremarkable -EEG to r/o seizure disorder, pending results -PT/OT eval and treatment DM type 2 -Heart healthy/diabetic diet -Insulin mild SS coverage -Metformin: on Hold for now -HbA1C: 6% Hypothyroidsm -Levothyroxine 88 mcg PO QD Hs of Tremors -Currently asymtomatic, -D/C Primidone 25 PO QHS (patient was not taking this medicine currently) Diverticultis -Resolved at this time, patient is afebrile, abd nontender, no leukocytosis -Patient currently receiving outpatient f/u with Dr Jacobs -D/C yumiko and anika. DVT Prophylaxis -Heparin 5000 U SC Q8h Code Status -Full code <Renea Rocha - Last Filed: 08/07/18 17:45> Objective - Vital Signs/Intake and Output Vital Signs (last 24 hours): Temp Pulse Resp BP Pulse Ox 98.3 F 68 20 131/73 96 08/07/18 15:36 08/07/18 15:36 08/07/18 15:36 08/07/18 15:36 08/07/18 15:36 - Medications Medications: Current Medications Aspirin (Aspirin Chewable) 81 mg PO DAILY [facility] Last Admin: 08/07/18 08:28 Dose: 81 mg Calcium/Vitamin D (Oscal-D 250 Mg-125 Units Tab) 1 tab PO QOTHERDAY [facility] Last Admin: 08/07/18 08:29 Dose: 1 tab Clopidogrel Bisulfate (Plavix) 75 mg PO DAILY [facility] Last Admin: 08/07/18 08:30 Dose: 75 mg Dextrose (Dextrose 50% Inj) 0 ml IV STAT PRN; Protocol PRN Reason: Hypoglycemia Protocol Dextrose (Glutose 15) 0 gm PO ONCE PRN; Protocol PRN Reason: Hypoglycemia Protocol Glucagon (Glucagen Diagnostic Kit) 0 mg IM STAT PRN; Protocol PRN Reason: Hypoglycemia Protocol Heparin Sodium (Porcine) (Heparin) 5,000 units SC Q8 [facility] PRN Reason: Protocol Last Admin: 08/07/18 17:14 Dose: 5,000 units Dextrose/Sodium Chloride (Dextrose 5%/0.45% Ns 1000 Ml) 1,000 mls @ 60 mls/hr IV .[id number] [facility] Stop: 08/08/18 12:53 Last Admin: 08/07/18 13:00 Dose: 60 mls/hr Insulin Human Lispro (Humalog) 0 units SC ACHS [facility] PRN Reason: Protocol Last Admin: 08/07/18 17:14 Dose: Not Given Levothyroxine Sodium (Synthroid) 88 mcg PO DAILY@0630 [facility] Last Admin: 08/07/18 06:37 Dose: 88 mcg - Labs Labs: 08/07/18 17:14 08/07/18 17:14 PT 12.2 Seconds (9.8-13.1) 08/07/18 17:14 INR 1.1 08/07/18 17:14 APTT 30.1 Seconds (25.6-37.1) 08/07/18 17:14 Attending/Attestation - Attestation I have personally seen and examined this patient.: Yes I have fully participated in the care of the patient.: Yes I have reviewed all pertinent clinical information, including history, physical exam and plan: Yes Notes (Text): Dysarthria and LE Weakness /Gait Instability - Pt had recurrence of the same symptoms she came in for - Rpt MRI done did not show any Acute CVA - Pt is on Flagyl and Primidone and both medications have [employer] Side effects - dysarthria, ataxia etc - will d/c both medications and will also hold meds that are not necessary in the acute care - ( ie :Evista) . Pt has been on the abx for Diverticulitis for more than 20 days and clinically she has no sxs for any acute infection. - gentle IVF hydration - PT re-eval - pt may need TCU vs [facility] if sxs do not resolve
--- NOTE | 2018-08-07 09:43 | CT ---
Date of service: 08/07/2018 PROCEDURE: CT HEAD WITHOUT CONTRAST. HISTORY: slurry speech COMPARISON: Noncontrast head CT and brain MRI both performed on 08/05/2018. TECHNIQUE: Axial computed tomography images were obtained through the head/brain without intravenous contrast. Radiation dose: Total exam DLP = 753.12 mGy-cm. This CT exam was performed using one or more of the following dose reduction techniques: Automated exposure control, adjustment of the mA and/or kV according to patient size, and/or use of iterative reconstruction technique. FINDINGS: HEMORRHAGE: No intracranial hemorrhage. BRAIN: Stable age related neuro degenerative change are identified without definite intracranial hemorrhage or CT evidence of ischemia. No mass effect or suspicious extra-axial collection identified. Posterior fossa contents appear stable. VENTRICLES: Unremarkable. No hydrocephalus. CALVARIUM: Unremarkable. PARANASAL SINUSES: Unremarkable as visualized. No significant inflammatory changes. MASTOID AIR CELLS: Unremarkable as visualized. No inflammatory changes. OTHER FINDINGS: None. IMPRESSION: Stable limited age-related neuro degenerative changes are identified which remain age-appropriate with no definite acute interval findings appreciated. Clinical and potential imaging follow-up can be performed if clinically warranted. Findings discussed with Dr. Rocha with written down and read back verification 08/07/2018 9:30 a.m..
[2018-08-07] MEDS: Dextrose 5%/0.45% NS 1,000 ML IV SCH (13:00)
--- NOTE | 2018-08-07 13:09 | MRI ---
Date of service: 08/07/2018 PROCEDURE: MRI BRAIN WITHOUT CONTRAST HISTORY: r/o cva COMPARISON: Noncontrast head from 08/07/2023 and MRI brain without contrast from 9 TECHNIQUE: Multiplanar, multisequence MR images of the brain were obtained without intravenous contrast enhancement. FINDINGS: HEMORRHAGE: None DWI: No evidence of an acute or early subacute infarction. BRAIN PARENCHYMA: There is symmetric T2/FLAIR hyperintense signal in the dentate nuclei of cerebellar hemispheres and in the inferior colliculus. There are mild chronic microangiopathic changes. There is no mass, mass effect or abnormal extra-axial fluid collection. There is no territorial infarction. The midline sagittal structures are normal. VENTRICLES: There is mild age-related global parenchymal volume loss and proportionate enlargement of the ventricles and cortical sulci. CRANIUM: There is normal bone marrow signal pattern. ORBITS: Grossly unremarkable. PARANASAL SINUSES/MASTOIDS: Predominantly clear. VASCULAR SYSTEM: There are normal signal voids in the larger intracranial arteries. OTHER FINDINGS: None. IMPRESSION: 1. No acute infarction. 2. Symmetric abnormal signal in the dentate nuclei of the cerebellar hemispheres and in the inferior colliculus. The differential considerations include edema, nonspecific infection/inflammation, metronidazole toxicity and gadolinium deposition. Contrast-enhanced MRI is recommended for further evaluation.
--- NOTE | 2018-08-07 16:24 | CARD ---
APPROVED REPORT Date of service: 08/07/2018 EXAM: Two-dimensional and M-mode echocardiogram with Doppler and color Doppler. Other Information Quality : GoodRhythm : NSR INDICATION CVA/TIA 2D DIMENSIONS IVSd1.01 (0.7-1.1cm)LVDd3.65 (3.9-5.9cm) LVOT Diameter1.85 (1.8-2.4cm)PWd0.97 (0.7-1.1cm) IVSs1.16 (0.8-1.2cm)LVDs2.59 (2.5-4.0cm) FS (%) 29.0 %PWs1.17 (0.8-1.2cm) M-Mode DIMENSIONS Left Atrium (MM)4.62 (2.5-4.0cm)IVSd0.88 (0.7-1.1cm) Aortic Root2.65 (2.2-3.7cm)LVDd5.03 (4.0-5.6cm) Aortic Cusp Exc.1.88 (1.5-2.0cm)PWd1.00 (0.7-1.1cm) IVSs1.62 cmFS (%) 45 % LVDs2.76 (2.0-3.8cm)PWs1.44 cm Aortic Valve AoV Peak Fjwueige630.2cm/sAoV VTI23.4cmAO Peak GR.7mmHg LVOT Peak Nzqkrgfh61.9cm/sLVOT VTI17.69cmAO Mean GR.4mmHg Mitral Valve MV E Rvbmfhvq83.8cm/sMV DECEL [id number] A Ugcwfdkl16.2cm/s MV PDR37tkM/A ratio0.7MVA (PHT)3.27cm2 TDI Lateral E' Peak V10.02cm/sMedial E' Peak V4.81cm/sE/Lateral E'5.2 E/Medial E'10.8 Pulmonary Valve PV Peak Irpwrjoy24.6cm/s Tricuspid Valve TR Peak Pstvyeuf195rh/sRAP EZHUNCYJ53ajFmLH Peak Gr.19mmHg ILWK05gcCw LEFT VENTRICLE The left ventricle is normal size. There is normal left ventricular wall thickness. The left ventricular systolic function is normal. The estimated ejection fraction is 55-60% No regional wall motion abnormalities noted.. Transmitral Doppler flow pattern is Grade I-abnormal relaxation pattern. No left ventricle thrombus noted on this study. There is no ventricular septal defect visualized. There is no mass noted in the left ventricle. RIGHT VENTRICLE The right ventricle is normal size. There is normal right ventricular wall thickness. The right ventricular systolic function is normal. ATRIA The left atrium size is moderately dilated The right atrium size is normal. The interatrial septum is intact with no evidence for an atrial septal defect. AORTIC VALVE The aortic valve is normal in structure. No aortic regurgitation is present. There is no aortic valvular stenosis. MITRAL VALVE The mitral valve is normal in structure. There is no mitral valve stenosis. There is trivial mitral valve regurgitation noted. TRICUSPID VALVE The tricuspid valve is normal in structure. There is mild tricuspid valve regurgitation noted. PASP within normal limits PULMONIC VALVE The pulmonary valve is normal in structure. There is no pulmonic valvular regurgitation. GREAT VESSELS The aortic root is normal in size. The ascending aorta is normal in size. The pulmonary artery is normal. The IVC is normal in size and collapses >50% with inspiration. PERICARDIAL EFFUSION There is no pericardial effusion. <Conclusion> Mild TR with normal PASP Dilated left atrium Normal LV systolic function with doppler hemodynamics consistent with abnormal relaxation The estimated ejection fraction is 55-60%
[2018-08-07 17:22] LABS: HEMOGLOBIN 14.1 g/dL (12.0-16.0); MEAN CELL VOLUME 84.3 fl (81.0-99.0); MEAN CORPUSCULAR HEMOGLOBIN 28.1 pg (27.0-31.0); MEAN CORPUSCULAR HGB CONC 33.3 g/dL (33.0-37.0); RBC 5.01 Mil/uL (3.80-5.20); RED CELL DISTRIBUTION WIDTH 15.3 % (11.5-14.5); WHITE BLOOD COUNT 4.1 K/uL (4.8-10.8)
[2018-08-07 17:26] LABS: INR 1.1; PROTHROMBIN TIME 12.2 Seconds (9.8-13.1)
[2018-08-07 17:28] LABS: PARTIAL THROMBOPLASTIN TIME 30.1 Seconds (25.6-37.1)
[2018-08-07 17:29] LABS: ALB/GLOB RATIO 1.1 (1.0-2.1); ALBUMIN 3.4 g/dL (3.5-5.0); ALT/SGPT 21 U/L (9-52); AST/SGOT 34 U/L (14-36); BLOOD UREA NITROGEN 10 mg/dl (7-17); CALCIUM 9.2 mg/dL (8.4-10.2); GFR NON-AFRICAN AMERICAN > 60
--- NOTE | 2018-08-07 23:21 | CARD ---
APPROVED REPORT Date of service: 08/07/2018 EKG Measurement Heart [id number] <Conclusion> Normal sinus rhythm Normal ECG
[2018-08-08] MEDS: Dextrose 5%/0.45% NS 1,000 ML IV SCH (05:46)
[2018-08-08] MEDS: Levothyroxine 88 MCG TAB PO SCH (05:47)
[2018-08-08] MEDS: Insulin Lispro (humaLOG) 100 Units/ml Inj SC SCH ×4 (06:33→22:52)
--- NOTE | 2018-08-08 12:21 | CP.PCM.DIS ---
Provider - Provider Date of Admission: 08/05/18 11:56 Attending physician: Kirill Vigil [facility] Course - Lab Results Lab Results: Most Recent Lab Values WBC 4.1 K/uL (4.8-10.8) L 08/07/18 17:14 RBC 5.01 Mil/uL (3.80-5.20) 08/07/18 17:14 Hgb 14.1 g/dL (12.0-16.0) 08/07/18 17:14 Hct 42.3 % (34.0-47.0) 08/07/18 17:14 MCV 84.3 fl (81.0-99.0) 08/07/18 17:14 MCH 28.1 pg (27.0-31.0) 08/07/18 17:14 MCHC 33.3 g/dL (33.0-37.0) 08/07/18 17:14 RDW 15.3 % (11.5-14.5) H 08/07/18 17:14 Plt Count 274 K/uL (130-400) 08/07/18 17:14 MPV 8.4 fl (7.2-11.7) 08/05/18 11:26 Neut % (Auto) 63.6 % (50.0-75.0) 08/05/18 11:26 Lymph % (Auto) 22.5 % (20.0-40.0) 08/05/18 11:26 [place] % (Auto) 9.7 % (0.0-10.0) 08/05/18 11:26 Eos % (Auto) 1.6 % (0.0-4.0) 08/05/18 11:26 Baso % (Auto) 2.6 % (0.0-2.0) H 08/05/18 11:26 Neut # (Auto) 2.9 K/uL (1.8-7.0) 08/05/18 11:26 Lymph # (Auto) 1.0 K/uL (1.0-4.3) 08/05/18 11:26 [place] # (Auto) 0.4 K/uL (0.0-0.8) 08/05/18 11:26 Eos # (Auto) 0.1 K/uL (0.0-0.7) 08/05/18 11:26 Baso # (Auto) 0.1 K/uL (0.0-0.2) 08/05/18 11:26 PT 12.2 Seconds (9.8-13.1) 08/07/18 17:14 INR 1.1 08/07/18 17:14 APTT 30.1 Seconds (25.6-37.1) 08/07/18 17:14 Sodium 139 mmol/l (132-148) 08/07/18 17:14 Potassium 3.9 MMOL/L (3.6-5.0) 08/07/18 17:14 Chloride 106 mmol/L (98-107) 08/07/18 17:14 Carbon Dioxide 28 mmol/L (22-30) 08/07/18 17:14 Anion Gap 9 (10-20) L 08/07/18 17:14 BUN 10 mg/dl (7-17) 08/07/18 17:14 Creatinine 0.5 mg/dl (0.7-1.2) L 08/07/18 17:14 Est GFR ( Amer) > 60 08/07/18 17:14 Est GFR (Non-Af Amer) > 60 08/07/18 17:14 POC Glucose (mg/dL) 131 mg/dL (65-110) H 08/08/18 10:53 Random Glucose 128 mg/dL (65-105) H 08/07/18 17:14 Hemoglobin A1c 6.0 % (4.2-6.5) 08/05/18 11:26 Calcium 9.2 mg/dL (8.4-10.2) 08/07/18 17:14 Phosphorus 2.7 mg/dl (2.5-4.5) 08/07/18 17:14 Magnesium 2.2 MG/DL (1.6-2.3) 08/07/18 17:14 Total Bilirubin 0.3 mg/dl (0.2-1.3) 08/07/18 17:14 AST 34 U/L (14-36) 08/07/18 17:14 ALT 21 U/L (9-52) 08/07/18 17:14 Alkaline Phosphatase 56 U/L (38-126) 08/07/18 17:14 Troponin I < 0.0120 ng/mL (0.00-0.120) 08/07/18 17:14 Total Protein 6.3 G/DL (6.3-8.2) 08/07/18 17:14 Albumin 3.4 g/dL (3.5-5.0) L 08/07/18 17:14 Globulin 2.9 gm/dL (2.2-3.9) 08/07/18 17:14 Albumin/Globulin Ratio 1.1 (1.0-2.1) 08/07/18 17:14 Triglycerides 64 mg/DL (0-149) 08/05/18 11:26 Cholesterol 111 mg/dL (0-199) 08/05/18 11:26 LDL Cholesterol Direct < 30 mg/dL (0-129) 08/05/18 11:26 HDL Cholesterol 57 MG/DL (30-70) 08/05/18 11:26 TSH 3rd Generation 0.12 mIU/ML (0.46-4.68) L 08/07/18 17:14 Blood Type O POSITIVE 08/05/18 12:40 Blood Type Confirm O POSITIVE 08/05/18 12:48 Antibody Screen Negative 08/05/18 12:40 BBK History Checked No verified bt 08/05/18 12:40 Discharge Exam - Head Exam Head Exam: ATRAUMATIC, NORMOCEPHALIC Discharge Plan - Follow Up Plan Condition: FAIR Disposition: HOME/ ROUTINE Instructions: Stroke (DC) Referrals: Vijay Vinson MD [Family Provider] - Rickey Govea MD [Medical Doctor] -
--- NOTE | 2018-08-08 17:15 | CP.PCM.PN ---
Subjective - Date & Time of Evaluation Date of Evaluation: 08/08/18 Time of Evaluation: 11:10 - Subjective Subjective: Patient seen this the morning, NAD, patient's daughters at bedside, slurred speech present, but improved compared to yesterday, also leg weakness improved today, denies GUTIÉRREZ, chest pain, SOB, abdominal pain, N/V. Objective - Vital Signs/Intake and Output Vital Signs (last 24 hours): Temp Pulse Resp BP Pulse Ox 98.4 F 63 16 112/68 99 08/08/18 16:10 08/08/18 16:10 08/08/18 16:10 08/08/18 16:10 08/08/18 16:10 - Medications Medications: Current Medications Aspirin (Aspirin Chewable) 81 mg PO DAILY [facility] Last Admin: 08/08/18 08:09 Dose: 81 mg Calcium/Vitamin D (Oscal-D 250 Mg-125 Units Tab) 1 tab PO QOTHERDAY [facility] Last Admin: 08/07/18 08:29 Dose: 1 tab Clopidogrel Bisulfate (Plavix) 75 mg PO DAILY [facility] Last Admin: 08/08/18 08:10 Dose: 75 mg Dextrose (Dextrose 50% Inj) 0 ml IV STAT PRN; Protocol PRN Reason: Hypoglycemia Protocol Dextrose (Glutose 15) 0 gm PO ONCE PRN; Protocol PRN Reason: Hypoglycemia Protocol Donepezil HCl (Aricept) 5 mg PO HS [facility] Glucagon (Glucagen Diagnostic Kit) 0 mg IM STAT PRN; Protocol PRN Reason: Hypoglycemia Protocol Heparin Sodium (Porcine) (Heparin) 5,000 units SC Q8 [facility] PRN Reason: Protocol Last Admin: 08/08/18 16:31 Dose: 5,000 units Insulin Human Lispro (Humalog) 0 units SC ACHS [facility] PRN Reason: Protocol Last Admin: 08/08/18 16:30 Dose: Not Given Levothyroxine Sodium (Synthroid) 50 mcg PO DAILY@0630 [facility] - Labs Labs: 08/07/18 17:14 08/07/18 17:14 PT 12.2 Seconds (9.8-13.1) 08/07/18 17:14 INR 1.1 08/07/18 17:14 APTT 30.1 Seconds (25.6-37.1) 08/07/18 17:14 - Constitutional Appears: Non-toxic, No Acute Distress - Head Exam Head Exam: ATRAUMATIC, NORMOCEPHALIC - Eye Exam Eye Exam: EOMI, PERRL - ENT Exam ENT Exam: Mucous Membranes Moist - Neck Exam Neck Exam: Full ROM - Cardiovascular Exam Cardiovascular Exam: REGULAR RHYTHM, +S1, +S2 - GI/Abdominal Exam GI & Abdominal Exam: Soft, Normal Bowel Sounds. absent: Tenderness - Extremities Exam Extremities Exam: absent: Pedal Edema - Neurological Exam Neurological Exam: Alert, Awake, Oriented x3 Neuro motor strength exam: Left Upper Extremity: 5, Right Upper Extremity: 5, Left Lower Extremity: 4, Right Lower Extremity: 4 Additional comments: dysarthria present but able to understand patient. - Psychiatric Exam Psychiatric exam: Normal Affect, Normal Mood - Skin Skin Exam: Dry, Normal Color, Warm Assessment and Plan - Assessment and Plan (Free Text) Assessment: The patient is a 73 y/o Female with PMHx that includes DM type 2, HLD, Hypothyroidsm, Essential tremors and recent diagnosis of diverticultitis who presented with slurred speech, unsteady gait and LE weakness on 08/05/18 and was admitted to r/o CVA vs TIA, who after having significant improvement of symptoms on day 2 after admission had a recurrence of dysarthria and LE weakness yesterday, today patient is noted to be improving clinically, no eveidence of acute infarct on reviewed imaging, VS have remained stable, patient evaluated by Neuro. Will initiate D/C planning for tomorrow. Plan: Acute CVA vs TIA -Dysarthria and LE weakness present but improved compared to yesterday chart reviewed, VS stable and imaging studies reviewed with no evidence of acute changes reported. -MRI done: no acute evidence of infarction, Symmetric abnormal signal in the dentate nuclei of the cerebllar hemispheres and in the inferior colliculus. The differential consideration include edema, nonspecific infection/inflammation, metronidazole toxicity and gadollinium depositio. Given that patient was on treatment with metronidazole for more than 20 days, this is likely a metronidazole-induced Encephalopathy. Metronidazole was D/C. -Continue Neuro check Q 4h -Swallow Eval: performed, WNL -CT of head: done: Age related changes, no acute findings. -CTA HEad/Neck: Unremarkbale CTA -Aspirin 81 PO QD -Plavix 75 PO QD -Atorvastatin 80 mg PO QD -Neurology consulted, Dr Govea, appears likely underlying dementia is present: Aricept started. -BMP unremarkable -EEG to r/o seizure disorder, pending results -patient will benefit with EMILIANA to further continue PT/OT unpon D/C DM type 2 -Heart healthy/diabetic diet -Insulin mild SS coverage -Metformin: on Hold for now -HbA1C: 6% Hypothyroidsm -Levothyroxine 88 mcg PO QD Hs of Tremors -Currently asymtomatic, -D/C Primidone 25 PO QHS (patient was not taking this medicine currently) Diverticultis -Resolved at this time, patient is afebrile, abd nontender, no leukocytosis -Patient currently receiving outpatient f/u with Dr Jacobs -D/C yumiko and anika. DVT Prophylaxis -Heparin 5000 U SC Q8h Code Status -Full code
[2018-08-09 05:14] LABS: HEMOGLOBIN 13.4 g/dL (12.0-16.0); MEAN CELL VOLUME 85.1 fl (81.0-99.0); MEAN CORPUSCULAR HEMOGLOBIN 28.2 pg (27.0-31.0); MEAN CORPUSCULAR HGB CONC 33.2 g/dL (33.0-37.0); RBC 4.76 Mil/uL (3.80-5.20); WHITE BLOOD COUNT 4.8 K/uL (4.8-10.8)
[2018-08-09 05:40] LABS: BLOOD UREA NITROGEN 5 mg/dl (7-17); GFR NON-AFRICAN AMERICAN > 60
[2018-08-09] MEDS ORDERED: Levothyroxine 50 MCG TAB PO SCH (06:30)
[2018-08-09] MEDS: Insulin Lispro (humaLOG) 100 Units/ml Inj SC SCH ×3 (08:00→17:13)
[2018-08-09] MEDS: Calcium-Vit D 250 mg-125 Units Tab UD PO SCH (09:17)
--- NOTE | 2018-08-09 10:02 | CP.PCM.DIS ---
Provider - Provider Date of Admission: 08/05/18 11:56 Attending physician: Kirill Vigil DO Time Spent in preparation of Discharge (in minutes): 35 Diagnosis - Discharge Diagnosis (1) TIA (transient ischemic attack) Status: Suspected (2) Drug-induced encephalopathy Status: Acute (3) Adverse reaction to metronidazole Status: Acute Hospital Course - Lab Results Lab Results: Most Recent Lab Values WBC 4.8 K/uL (4.8-10.8) 08/09/18 04:20 RBC 4.76 Mil/uL (3.80-5.20) 08/09/18 04:20 Hgb 13.4 g/dL (12.0-16.0) 08/09/18 04:20 Hct 40.5 % (34.0-47.0) 08/09/18 04:20 MCV 85.1 fl (81.0-99.0) 08/09/18 04:20 MCH 28.2 pg (27.0-31.0) 08/09/18 04:20 MCHC 33.2 g/dL (33.0-37.0) 08/09/18 04:20 RDW 16.0 % (11.5-14.5) H 08/09/18 04:20 Plt Count 259 K/uL (130-400) 08/09/18 04:20 MPV 8.4 fl (7.2-11.7) 08/05/18 11:26 Neut % (Auto) 63.6 % (50.0-75.0) 08/05/18 11:26 Lymph % (Auto) 22.5 % (20.0-40.0) 08/05/18 11:26 [place] % (Auto) 9.7 % (0.0-10.0) 08/05/18 11:26 Eos % (Auto) 1.6 % (0.0-4.0) 08/05/18 11:26 Baso % (Auto) 2.6 % (0.0-2.0) H 08/05/18 11:26 Neut # (Auto) 2.9 K/uL (1.8-7.0) 08/05/18 11:26 Lymph # (Auto) 1.0 K/uL (1.0-4.3) 08/05/18 11:26 [place] # (Auto) 0.4 K/uL (0.0-0.8) 08/05/18 11:26 Eos # (Auto) 0.1 K/uL (0.0-0.7) 08/05/18 11:26 Baso # (Auto) 0.1 K/uL (0.0-0.2) 08/05/18 11:26 PT 12.2 Seconds (9.8-13.1) 08/07/18 17:14 INR 1.1 08/07/18 17:14 APTT 30.1 Seconds (25.6-37.1) 08/07/18 17:14 Sodium 142 mmol/l (132-148) 08/09/18 04:20 Potassium 4.3 MMOL/L (3.6-5.0) 08/09/18 04:20 Chloride 110 mmol/L (98-107) H 08/09/18 04:20 Carbon Dioxide 30 mmol/L (22-30) 08/09/18 04:20 Anion Gap 6 (10-20) L 08/09/18 04:20 BUN 5 mg/dl (7-17) L 08/09/18 04:20 Creatinine 0.6 mg/dl (0.7-1.2) L 08/09/18 04:20 Est GFR ( Amer) > 60 08/09/18 04:20 Est GFR (Non-Af Amer) > 60 08/09/18 04:20 POC Glucose (mg/dL) 97 mg/dL (65-110) 08/09/18 05:00 Random Glucose 107 mg/dL (65-105) H 08/09/18 04:20 Hemoglobin A1c 6.0 % (4.2-6.5) 08/05/18 11:26 Calcium 9.0 mg/dL (8.4-10.2) 08/09/18 04:20 Phosphorus 2.7 mg/dl (2.5-4.5) 08/07/18 17:14 Magnesium 2.2 MG/DL (1.6-2.3) 08/07/18 17:14 Total Bilirubin 0.3 mg/dl (0.2-1.3) 08/07/18 17:14 AST 34 U/L (14-36) 09/12/18 17:14 ALT 21 U/L (9-52) 08/07/18 17:14 Alkaline Phosphatase 56 U/L (38-126) 08/07/18 17:14 Troponin I < 0.0120 ng/mL (0.00-0.120) 08/07/18 17:14 Total Protein 6.3 G/DL (6.3-8.2) 08/07/18 17:14 Albumin 3.4 g/dL (3.5-5.0) L 08/07/18 17:14 Globulin 2.9 gm/dL (2.2-3.9) 08/07/18 17:14 Albumin/Globulin Ratio 1.1 (1.0-2.1) 08/07/18 17:14 Triglycerides 64 mg/DL (0-149) 08/05/18 11:26 Cholesterol 111 mg/dL (0-199) 08/05/18 11:26 LDL Cholesterol Direct < 30 mg/dL (0-129) 08/05/18 11:26 HDL Cholesterol 57 MG/DL (30-70) 08/05/18 11:26 TSH 3rd Generation 0.12 mIU/ML (0.46-4.68) L 08/07/18 17:14 Blood Type O POSITIVE 08/05/18 12:40 Blood Type Confirm O POSITIVE 08/05/18 12:48 Antibody Screen Negative 08/05/18 12:40 BBK History Checked No verified bt 08/05/18 12:40 - Hospital Course Hospital Course: 73 y/o female with PMH DM , dyslipidemia, Hypothyroidism, essential tremors, admitted on 08/05/18 for slurred speech , unsteady gait and lower extremity weakness.The patient was admitted with a possible CVA vs TIA. Also she had been diagnosed with diverticulitis outpatient on june and was taking Cipro and Metronidazol PO for more than 20 days. During hospital stay stroke workup was done, CT of Head reported no acute findings, no evidence of infarction, MRI showed no acute evidence of infarction, and reported a symmetric abnormal signal in the dentate nuclei of the cerebllar hemispheres and in the inferior colliculus. The differential consideration includes edema, nonspecific infection /inflammation, metronidazole toxicity and gadollinium deposition. Stroke was ruled out. Given that patient was on treatment with metronidazole for more than 20 days with the MRI findings and the clinical presentation of the patient with dysarthria and lower extremity weakness, likely the patient developed a drug reaction metronidazole-induced Encephalopathy. Metronidazol, Cipro and primidone were all discontinued from patient's medications. Patient was also seen by Neuro. PT was consulted and recommendation given to continue therapy upon discharge, patient was referred to a EMILIANA. On D/C day patient is seen at bedside, family is also in room, a significant improvement is noted in patient speech and leg strength already at this point, VS stable, patient is hemodinamically stable, no tremors, patient denies any complain of GUTIÉRREZ, chest pain, palpiattions, abdominal pain, N/V/D/C or urinary complains at this point. All questions were answered to the patient and family and concerns were addressed. Chart, labs are reviewed and care resumed at this point. Patient was instructed to f/u with PMD Dr Vinson and Neurology within a week. ED return instructions given. Medications were reviewed. Medication on D/C: Aspirin 81 PO QD Lipitor 20 PO QD Metformin 500 PO BID Raloxifene (continue home medication)60 PO QD Levothyroxine 50 mcg PO QD (for hypothyroidism: TSH 0.12 checked in hospital), decrease dose of synthroid from 88 to 50 mcg po daily, patient instructed to recheck in 2 weeks and f/u with PMD Discharge Exam - Head Exam Head Exam: ATRAUMATIC, NORMOCEPHALIC - Eye Exam Eye Exam: EOMI, PERRL - ENT Exam ENT Exam: Mucous Membranes Moist - Respiratory Exam Respiratory Exam: Clear to PA & Lateral. absent: Wheezes - Cardiovascular Exam Cardiovascular Exam: REGULAR RHYTHM, +S1, +S2 - GI/Abdominal Exam GI & Abdominal Exam: Normal Bowel Sounds. absent: Tenderness - Neurological Exam Neurological exam: Alert, Oriented x3 - Psychiatric Exam Psychiatric exam: Normal Affect, Normal Mood - Skin Skin Exam: Normal Color, Warm Discharge Plan - Discharge Medications Prescriptions: Aspirin [Aspirin Chewable] 81 mg PO DAILY 30 Days #30 chew Atorvastatin [Lipitor] 20 mg PO DAILY 30 Days #30 tab Levothyroxine [Synthroid] 50 mcg PO DAILY@0630 30 Days #30 tab metFORMIN [glucOPHAGE] 500 mg PO BID 30 Days #30 tab Raloxifene [Evista] 60 mg PO DAILY 30 Days #30 tab - Follow Up Plan Condition: FAIR Disposition: HOME/ ROUTINE Instructions: Stroke (DC) Referrals: Vijay Vinson MD [Family Provider] - Rickey Govea MD [Medical Doctor] -
[2018-08-09 12:09] VITALS: PULSE 64
[2018-08-09 15:48] VITALS: BP 133/71; RESP 18; TEMP 98; O2SAT 98
== END 2018-08-09 18:00 | DRG 92 ==
LOC: H.ER 10:46 → H.ERHOLD 11:56 → H.TEL 13:37
PROVIDERS: ADMIT Internal Medicine; ATTEND Internal Medicine
DX: G92 Toxic encephalopathy (principal); K57.92 Diverticulitis of intestine, part unspecified, without perforation or abscess without bleeding; G45.9 Transient cerebral ischemic attack, unspecified; E11.9 Type 2 diabetes mellitus without complications; E78.5 Hyperlipidemia, unspecified; G25.0 Essential tremor; E78.00 Pure hypercholesterolemia, unspecified; I10 Essential (primary) hypertension; Z91.012 Allergy to eggs; R47.1 Dysarthria and anarthria; F03.90 Unspecified dementia, unspecified severity, without behavioral disturbance, psychotic disturbance, mood disturbance, and anxiety; R47.81 Slurred speech; R53.1 Weakness; E03.9 Hypothyroidism, unspecified; T37.8X5A Adverse effect of other specified systemic anti-infectives and antiparasitics, initial encounter; M81.0 Age-related osteoporosis without current pathological fracture; R26.81 Unsteadiness on feet